=== PATIENT | female | born 1975 | race Caucasian/White ===

== ENCOUNTER 2019-03-24 16:03 | Emergency (ER) | payer OTHER ==
[~2019-03-24] VITALS: Ht 154.9 cm; Wt 80.3 kg
== END 2019-03-24 18:54 | disposition home or self-care (01) ==
LOC: ER 16:03
DX: D64.89 Other specified anemias (principal); R10.13 Epigastric pain; F41.8 Other specified anxiety disorders; R11.11 Vomiting without nausea; R11.2 Nausea with vomiting, unspecified

== ENCOUNTER 2022-11-23 15:27 | Inpatient (IN) | payer OTHER ==
[~2022-11-23] VITALS: Ht 167.6 cm; Wt 95.3 kg
[2022-11-23] MEDS ORDERED: PRENATAL CAPLE1 EAC1 PO (16:25)
[2022-11-23] MEDS ORDERED: FOLIC ACID20 MG PO (16:25)
[2022-11-23] MEDS ORDERED: VITAMIN C100 MG PO (16:26)
[2022-11-23] MEDS ORDERED: CHILDREN'S ASPI81 MG PO (16:26)
== END 2022-11-24 08:38 | disposition home or self-care (01) | DRG 833 ==
LOC: EDBD 15:27 → LDR 15:27
PROVIDERS: ADMIT Obstetrics & Gynecology Gynecology; ATTEND Obstetrics & Gynecology Gynecology
PROC: 4A1HXCZ Monitoring of Products of Conception, Cardiac Rate, External Approach (ICD-10-PCS; principal; 2022-11-23)
DX: O16.3 Unspecified maternal hypertension, third trimester (principal); Z3A.37 37 weeks gestation of pregnancy; Z20.822 Contact with and (suspected) exposure to COVID-19

== ENCOUNTER 2022-11-29 11:07 | Outpatient (CLI) | payer OTHER ==
[~2022-11-29 11:07] MED LIST: CHILDREN'S ASPI81 MG PO; FOLIC ACID20 MG PO; PRENATAL CAPLE1 EAC1 PO; VITAMIN C100 MG PO
== END 2022-11-29 12:01 | disposition home or self-care (01) ==
LOC: NST 11:07
PROVIDERS: ATTEND Obstetrics & Gynecology Maternal & Fetal Medicine
DX: Z34.83 Encounter for supervision of other normal pregnancy, third trimester (principal)

== ENCOUNTER 2022-11-30 13:31 | Inpatient (IN) | payer OTHER ==
[~2022-11-30] VITALS: Ht 167.6 cm; Wt 3.6 kg
[2022-12-01] MEDS ORDERED: PRENATAL MULTI1 EAC3 PO (10:31)
[2022-12-01] MEDS ORDERED: VITAMIN C500 M6 PO (10:32)
[2022-12-01] MEDS ORDERED: FOLIC ACID0.8 M1 PO (10:32)
== END 2022-12-03 13:17 | disposition home or self-care (01) | DRG 788 ==
LOC: LDR 13:31 → OB/GYN 13:31 → O/R 12-01 14:24 → OB/GYN 12-01 18:30
PROVIDERS: ADMIT Obstetrics & Gynecology Gynecology; ATTEND Obstetrics & Gynecology Gynecology
PROC: 3E0P7VZ Introduction of Hormone into Female Reproductive, Via Natural or Artificial Opening (ICD-10-PCS; 2022-11-30)
PROC: 4A1HXCZ Monitoring of Products of Conception, Cardiac Rate, External Approach (ICD-10-PCS; 2022-11-30)
PROC: 3E033VJ Introduction of Other Hormone into Peripheral Vein, Percutaneous Approach (ICD-10-PCS; 2022-12-01)
PROC: 10D00Z1 Extraction of Products of Conception, Low, Open Approach (ICD-10-PCS; principal; 2022-12-01 13:00)
DX: O61.0 Failed medical induction of labor (principal); O13.4 Gestational [pregnancy-induced] hypertension without significant proteinuria, complicating childbirth; Z3A.38 38 weeks gestation of pregnancy; Z37.0 Single live birth; Z20.822 Contact with and (suspected) exposure to COVID-19